=== PATIENT | male | born 1995 | race Caucasian/White ===

== ENCOUNTER 2018-05-09 17:22 | Emergency (ER) | payer SELFPAY ==
[~2018-05-09] VITALS: Ht 170.2 cm; Wt 62.0 kg
[2018-05-09 18:57] LABS: CLARITY URINE CLEAR (CLEAR); COLOR URINE YELLOW (YELLOW); KETONES URINE NEGATIVE (NEGATIVE); LEUKOCYTE ESTERASE URINE NEGATIVE (NEGATIVE); NITRITE URINE NEGATIVE (NEGATIVE); OCCULT BLOOD URINE NEGATIVE (NEGATIVE); PROTEIN URINE NEGATIVE (NEGATIVE); SPECIFIC GRAVITY URINE 1.024 (1.005-1.030); UROBILINOGEN URINE 0.2 E.U./dL (0.2-1.0)
[2018-05-09 19:13] LABS: BASOPHILS % 0.6 % (0.0-2.0); EOSINOPHILS % 2.1 % (0.0-5.0); HEMATOCRIT. 43.1 % (42.0-52.0); HEMOGLOBIN. 14.4 g/dL (14.0-18.0); LYMPHOCYTES % 38.5 % (20.0-50.0); MEAN CORPUSCULAR HEMOGLOBIN 26.5 pg (28.0-32.0); MEAN CORPUSCULAR VOLUME 79.4 fL (80.0-94.0); MEAN PLATELET VOLUME 7.6 fl (7.4-10.4); NEUTROPHILS % 50.8 % (40.0-76.0); PLATELET 214 x1000/uL (130-400); RED BLOOD CELL COUNT 5.42 mill/uL (4.7-6.1)
[2018-05-09 19:19] LABS: CHLORIDE 105 mEq/L (98-107)
[2018-05-09 22:45] VITALS: BP 107/61
== END 2018-05-09 22:47 | disposition home or self-care (01) ==
LOC: ER 17:22
DX: N45.2 Orchitis (principal); N50.812 Left testicular pain
CPT/HCPCS: 36415; 76870; 80048; 93976; 99284